=== PATIENT | male | born 1980 | race Two or more races ===

== ENCOUNTER 2021-07-21 09:36 | Emergency (ER) | payer MEDICAID, OTHER ==
[~2021-07-21] VITALS: Ht 157.5 cm; Wt 70.3 kg
[2021-07-21 09:38] VITALS: BP 142/87
[2021-07-21] MEDS ORDERED: METF-370 PO (12:23)
[2021-07-21] MEDS ORDERED: AMOX-277 PO (12:23)
[2021-07-21] MEDS ORDERED: BENZ100C19 PO (12:23)
== END 2021-07-21 12:33 | disposition home or self-care (01) ==
LOC: ER 09:36
DX: J06.9 Acute upper respiratory infection, unspecified (principal); E11.65 Type 2 diabetes mellitus with hyperglycemia; Z76.0 Encounter for issue of repeat prescription; Z20.822 Contact with and (suspected) exposure to COVID-19
CPT/HCPCS: 36415; 71045; 82962